=== PATIENT | female | born 1955 | race Hispanic/Latino ===

== ENCOUNTER → 2018-11-25 15:00 | Outpatient (CLI) | payer OTHER, SELFPAY ==
[2018-11-25 15:24] LABS: Add Manual Diff / Slide Review NO; Basophils Absolute Auto 100 /uL (0-100); Basophils Percent Auto 1.1 % (0-2); Eosinophils Absolute Auto 100 /uL (0-450); Eosinophils Percent Auto 1.8 % (2-4); Hematocrit 43.5 % (36-46); Hemoglobin 14.4 g/dL (12.0-16.0); Lymphocytes Absolute Auto 3200 /uL (1100-4500); Lymphocytes Percent Auto 45.1 % (25-40); Mean Corpuscular HGB Conc 33.1 % (30-36); Mean Corpuscular Hemoglobin 27.9 PG (26-34); Mean Corpuscular Volume 84.5 fL (80-100); Monocytes Absolute Auto 400 /uL (0-900); Monocytes Percent Auto 5.8 % (3-14); Neutrophils Absolute Auto 3200 /uL (1500-7000); Neutrophils Percent Auto 46.2 % (50-75); Platelet Count 289 X10^3/uL (150-400); Red Blood Cell Count 5.15 X10^6/uL (4.0-5.2); Red Cell Distribution Width 13.5 % (11.6-14.8)
[2018-11-25 15:31] LABS: Hemoglobin A1C% w Est Avg Glu 7.9 % (4.0-6.0)
[2018-11-25 15:42] LABS: B Type Natriuretic Peptide < 100 (<100)
[2018-11-25 16:34] LABS: HEMOLYSIS < 15 (0-50)
[2018-11-25 16:41] LABS: Alanine Aminotransferase 40 IU/L (9-52); Albumin 4.3 g/dL (3.5-5.0); Albumin Globulin Ratio 1.4 (1.0-2.8); Alkaline Phosphatase 122 U/L (38-126); Aspartate Aminotransferase 22 IU/L (14-36); Bilirubin Total 0.3 mg/dL (0.2-1.3); Blood Urea Nitrogen 15 mg/dL (7-17); Calcium 9.6 mg/dL (8.4-10.2); Carbon Dioxide 24 mmol/L (22-32); Chloride 103 mmol/L (98-107); Estimated Glomerular Filt Rate > 60.0 mL/min (>60); Glucose 145 mg/dL (80-110); Potassium 4.1 mmol/L (3.4-5.1); Sodium 138 mmol/L (137-145); Total Protein 7.3 g/dL (6.3-8.2)
[2018-11-25 16:51] LABS: Microalbumi Creatinin Ratio Ur 23.9 ug/mg CR (<30); Microalbumin Urine Random < 0.6 mg/dL (0-1.6)
[2018-11-25 16:56] LABS: Vitamin D 25 Hydroxy (D3) 17.2 ng/mL (30.0-100.0)
[2018-11-25 17:10] LABS: TSH w/ Reflex to FT4 2.94 uIU/mL (0.47-4.68)
[2018-11-25 17:16] LABS: Ferritin 80.6 ng/mL (11.1-264)
[2018-11-25 17:33] LABS: Rheumatoid Factor < 8.6 IU/mL (<12.0)
[2018-11-25 20:17] LABS: Vitamin B12 600 pg/mL (239-931)
[2018-11-27 20:17] LABS: ANA Pattern Speckled; ANA Screen, IFA Positive (Negative)
== END ==
PROVIDERS: PCP Student in an Organized Health Care Education/Training Program; Visit Provider Student in an Organized Health Care Education/Training Program
DX: E11.9 Type 2 diabetes mellitus without complications (principal); R53.83 Other fatigue; E55.9 Vitamin D deficiency, unspecified; R01.1 Cardiac murmur, unspecified
CPT/HCPCS: 36415; 80053; 82043; 82306; 82570; 82607; 82728; 83036; 83880; 84443; 85025; 86038; 86430

== ENCOUNTER → 2018-12-04 13:32 | Outpatient (CLI) | payer OTHER, SELFPAY ==
[2018-12-04 15:16] LABS: Erythrocyte Sedimentation Rate 18 MM/HR (0-20)
[2018-12-06 09:49] LABS: DNA (DS) Antibody 1 IU/mL (< 5)
[2018-12-06 12:04] LABS: CCP Antibody (IgG) < 16 Units (< 20)
[2018-12-06 13:57] LABS: Complement C3 183 mg/dL (83-193)
[2018-12-11 08:33] LABS: B2-Glycoprotein I IgA AB < 9 SAU (< OR = 20); B2-Glycoprotein I IgG AB < 9 SGU (< OR = 20); B2-Glycoprotein I IgM AB < 9 SMU (< OR = 20); Cardiolipin Ab IgA < 11 APL; Cardiolipin Ab IgG < 14 GPL; Cardiolipin Ab IgM < 12 MPL; Phos. Serine AB IgM < 25 U/mL
== END ==
PROVIDERS: PCP Student in an Organized Health Care Education/Training Program; Visit Provider Student in an Organized Health Care Education/Training Program
DX: R53.83 Other fatigue (principal); R76.8 Other specified abnormal immunological findings in serum
CPT/HCPCS: 85613; 85651; 86146; 86147; 86148; 86160; 86200; 86225; 86235

== ENCOUNTER → 2018-12-22 14:32 | Outpatient (CLI) | payer OTHER, SELFPAY ==
--- NOTE | 2018-12-22 14:34 | DI.MG.S_ITS ---
BILATERAL DIGITAL SCREENING MAMMOGRAM 3D/2D WITH CAD: 12/22/2018 CLINICAL: Routine screening. Family history of breast cancer. Comparison is made to exams dated: 07/12/2010 mammogram, 12/30/2008 mammogram, and 09/06/2004 mammogram - [facility]. There are scattered fibroglandular elements in both breasts. Current study was also evaluated with a Computer Aided Detection (CAD) system. No significant masses, calcifications, or other findings are seen in either breast. There has been no significant interval change. IMPRESSION: NEGATIVE There is no mammographic evidence of malignancy. A 1 year screening mammogram is recommended. This exam was interpreted at Station ID: [id number]. NOTE: For mammograms, a report in lay terms will be sent to the patient. Approximately 15% of breast malignancies will not be visualized mammographically. In the management of a palpable breast mass, a negative mammogram must not discourage biopsy of a clinically suspicious lesion. Electronically Signed By: Jese banks/mandy:12/22/2018 22:29:52 letter sent: Normal Exam ACR BI-RADS Category 1: Negative 3341F
== END ==
PROVIDERS: PCP Student in an Organized Health Care Education/Training Program; Visit Provider Student in an Organized Health Care Education/Training Program
DX: Z12.31 Encounter for screening mammogram for malignant neoplasm of breast (principal); Z80.3 Family history of malignant neoplasm of breast
CPT/HCPCS: 77063; 77067

== ENCOUNTER → 2020-07-06 16:18 | Outpatient (CLI) | payer OTHER, SELFPAY ==
[2020-07-06 17:14] LABS: Hemoglobin A1C% w Est Avg Glu 9.7 % (4.0-6.0)
== END ==
PROVIDERS: PCP Student in an Organized Health Care Education/Training Program; Referring Provider Student in an Organized Health Care Education/Training Program; Visit Provider Student in an Organized Health Care Education/Training Program
DX: E11.9 Type 2 diabetes mellitus without complications (principal)
CPT/HCPCS: 36415; 83036

== ENCOUNTER → 2020-11-10 11:11 | Outpatient (CLI) | payer OTHER, SELFPAY ==
[2020-11-10 12:05] LABS: Hemoglobin A1C% w Est Avg Glu 8.9 % (4.0-6.0)
[2020-11-10 12:10] LABS: Alanine Aminotransferase 27 IU/L (<35); Albumin 4.1 g/dL (3.5-5.0); Albumin Globulin Ratio 1.2 (1.0-2.8); Alkaline Phosphatase 121 U/L (38-126); Aspartate Aminotransferase 26 IU/L (14-36); BUN Creatinine Ratio 27.3 (6-22); Bilirubin Total 0.5 mg/dL (0.2-1.3); Blood Urea Nitrogen 15 mg/dL (7-17); Calcium 9.4 mg/dL (8.4-10.2); Carbon Dioxide 24 mmol/L (22-32); Chloride 104 mmol/L (98-107); Cholesterol 234 mg/dL (140-199); Estimated Glomerular Filt Rate > 60.0 mL/min (>60); Globulin 3.4 g/dL (1.7-4.1); Glucose 202 mg/dL (80-110); HDL Cholesterol 37 mg/dL (40-60); HEMOLYSIS < 15 (0-50); LDL Cholesterol Calculated 151 mg/dL (<100); Potassium 4.4 mmol/L (3.4-5.1); Sodium 136 mmol/L (137-145); Total Protein 7.5 g/dL (6.3-8.2); Triglycerides 231 mg/dL (35-150)
[2020-11-10 12:41] LABS: Thyroid Stimulating Hormone 2.68 uIU/mL (0.47-4.68)
[2020-11-10 14:31] LABS: Creatinine Urine Random 113.9 mg/dL
[2020-11-10 14:35] LABS: Microalbumi Creatinin Ratio Ur 13.1 ug/mg CR (<30); Microalbumin Urine Random 1.5 mg/dL (0-1.6)
== END ==
PROVIDERS: PCP Student in an Organized Health Care Education/Training Program
DX: E11.65 Type 2 diabetes mellitus with hyperglycemia (principal)
CPT/HCPCS: 36415; 80053; 80061; 82043; 82570; 83036; 84443

== ENCOUNTER → 2022-02-21 16:04 | Outpatient (CLI) | payer OTHER, SELFPAY ==
[2022-02-21 17:06] LABS: Hemoglobin A1C% w Est Avg Glu 8.6 % (4.0-6.0)
[2022-02-21 17:12] LABS: Alanine Aminotransferase 24 IU/L (<35); Albumin Globulin Ratio 1.2 (1.0-2.8); Alkaline Phosphatase 120 U/L (38-126); Aspartate Aminotransferase 19 IU/L (14-36); BUN Creatinine Ratio 29.6 (6-22); Bilirubin Total 0.4 mg/dL (0.2-1.3); Blood Urea Nitrogen 16 mg/dL (7-17); Carbon Dioxide 25 mmol/L (22-32); Chloride 103 mmol/L (98-107); Cholesterol 237 mg/dL (140-199); Estimated Glomerular Filt Rate > 60 mL/min (>60); Globulin 3.4 g/dL (1.7-4.1); Glucose 170 mg/dL (80-110); HDL Cholesterol 36 mg/dL (40-60); HEMOLYSIS < 15 (0-50); Potassium 3.9 mmol/L (3.4-5.1); Sodium 136 mmol/L (137-145); Total Protein 7.4 g/dL (6.3-8.2); Triglycerides 417 mg/dL (35-150)
[2022-02-21 17:35] LABS: Creatinine Urine Random 9.7 mg/dL
[2022-02-21 17:37] LABS: Microalbumi Creatinin Ratio Ur 92.7 ug/mg CR (<30); Microalbumin Urine Random 0.9 mg/dL (0-1.6)
[2022-02-21 17:41] LABS: Thyroid Stimulating Hormone 2.49 uIU/mL (0.47-4.68)
== END ==
PROVIDERS: PCP Student in an Organized Health Care Education/Training Program; Referring Provider Internal Medicine; Visit Provider Internal Medicine
DX: E11.9 Type 2 diabetes mellitus without complications (principal)
CPT/HCPCS: 36415; 80053; 80061; 82043; 82570; 83036; 84443

== ENCOUNTER → 2022-05-10 15:31 | Outpatient (CLI) | payer OTHER, SELFPAY ==
[2022-05-10 16:37] LABS: Add Manual Diff / Slide Review NO; Basophils Absolute Auto 100 /uL (0-100); Basophils Percent Auto 1.4 % (0-2); Eosinophils Absolute Auto 200 /uL (0-450); Hemoglobin 14.7 g/dL (12.0-16.0); Lymphocytes Absolute Auto 2800 /uL (1100-4500); Lymphocytes Percent Auto 43.9 % (25-40); Mean Corpuscular HGB Conc 33.3 % (30-36); Mean Corpuscular Hemoglobin 28.6 PG (26-34); Mean Corpuscular Volume 85.8 fL (80-100); Monocytes Absolute Auto 400 /uL (0-900); Monocytes Percent Auto 6.4 % (3-14); Neutrophils Absolute Auto 2900 /uL (1500-7000); Neutrophils Percent Auto 45.3 % (50-75); Platelet Count 251 X10^3/uL (150-400); Red Blood Cell Count 5.13 X10^6/uL (4.0-5.2); Red Cell Distribution Width 13.2 % (11.6-14.8); White Blood Cell Count 6.4 X10^3/uL (4.5-11.0)
[2022-05-10 16:53] LABS: Alanine Aminotransferase 32 IU/L (<35); Albumin 4.1 g/dL (3.5-5.0); Albumin Globulin Ratio 1.3 (1.0-2.8); Alkaline Phosphatase 96 U/L (38-126); Aspartate Aminotransferase 21 IU/L (14-36); BUN Creatinine Ratio 25.5 (6-22); Bilirubin Total 0.5 mg/dL (0.2-1.3); Blood Urea Nitrogen 14 mg/dL (7-17); Calcium 9.2 mg/dL (8.4-10.2); Carbon Dioxide 21 mmol/L (22-32); Chloride 105 mmol/L (98-107); Estimated Glomerular Filt Rate > 60 mL/min (>60); Globulin 3.1 g/dL (1.7-4.1); Glucose 93 mg/dL (80-110); HEMOLYSIS < 15 (0-50); Sodium 137 mmol/L (137-145); Total Protein 7.2 g/dL (6.3-8.2); Uric Acid 3.6 mg/dL (2.5-6.2)
[2022-05-10 16:58] LABS: High Sensitivity CRP - Cardiac 4.6 mg/L (1.0-3.0)
[2022-05-10 17:00] LABS: Rheumatoid Factor < 8.6 IU/mL (<12.0)
[2022-05-10 19:20] LABS: Erythrocyte Sedimentation Rate 9 MM/HR (0-20)
[2022-05-11 17:19] LABS: SS A Ro Sjogrens Antibody < 0.2 AI (0.0-0.9); SS B La Sjogrens Antibody < 0.2 AI (0.0-0.9)
[2022-05-12 11:57] LABS: Angiotensin Converting Enzyme 29 U/L (14-82)
[2022-05-12 13:18] LABS: ANA Screen, IFA Negative (.)
[2022-05-17 14:05] LABS: MuSK Antibodies <1.0 U/mL (.)
== END ==
PROVIDERS: PCP Student in an Organized Health Care Education/Training Program; Referring Provider Ophthalmology; Visit Provider Ophthalmology
DX: H02.402 Unspecified ptosis of left eyelid (principal); H53.8 Other visual disturbances
CPT/HCPCS: 36415; 80053; 82164; 83519; 84443; 84550; 85025; 85651; 86038; 86140; 86235; 86430

== ENCOUNTER 2023-07-12 12:32 | Day surgery (SDC) | payer MEDICARE, OTHER, SELFPAY ==
--- NOTE | 2023-07-12 | PATH_ITS ---
[facility] Accession Number: [id number] No. of containers..01 Tissue . 01 Material submitted: . colon - TRANSVERSE COLON . 01 Diagnosis: Transverse Colon Polyp: Inflammatory polyp with erosion. Negative for dysplasia or malignancy. Additional step sections examined. MRV 07/22/2023 1358 Local . 01 Electronically signed: . Jax Ross MD, PhD, Pathologist NPI- [id number] . 01 Gross description: . TRANSVERSE COLON: Received in formalin is 2 fragment(s) of cooper, soft tissue measuring 0.4 x 0.3 x 0.2 cm to 0.3 x 0.2 x 0.1 cm submitted entirely in 1 cassette(s) /AAY 07/17/2023 0106 Local . 01 Pathologist provided ICD-10: Z12.11, K51.40 . 01 CPT . 016136 Specimen Comment: A courtesy copy of this report has been sent to [phone] Performed at: 01 [facility] [address] [place] [address], [place], [place] [id number] MD Jese Chau MD Phone: [phone]
[2023-07-12 13:05] VITALS: BP 118/62; PULSE 91; RESP 16; TEMP 36.9; O2SAT 96; BMI 28.8
[2023-07-12] MEDS: LACTATED RINGERS 1,000 ML 42 ML IV (13:14)
--- NOTE | 2023-07-12 13:33 | PM.HP.1 ---
History of Present Illness History of Present Illness Date Patient Seen: 07/12/23 Time Patient Seen: 13:33 Chief complaint: Screening Colonoscopy Narrative: 67-year-old woman here for screening colonoscopy. Personal history of colonic polyps last colonoscopy perhaps 2018 at [facility]. Recently she reports a few episodes of painless bright red blood per rectum. No abdominal pain unintentional weight loss. No family history of intestinal malignancy. [facility] Medical History Colon polyps Hiatal hernia (2013) Diabetes mellitus (2013) Surgical History History of colonoscopy with polypectomy History of laparoscopy (~1983) Family History Father Brain tumor Mother Dermatomyositis Sister SLE (systemic lupus erythematosus) MCTD (mixed connective tissue disease) Sena's granulomatosis Brother Colon polyps Family/Other Breast cancer Other Type 1 diabetes mellitus Type 2 diabetes mellitus Social History marital status: household members: spouse Smoking Status: Never smoker Meds Home Medications and Allergies Home Medications Medication Instructions Recorded Confirmed Type blood-glucose meter (FreeStyle #1 ea 06/10/18 06/14/23 Rx Indian Lite kit) blood sugar diagnostic (Blood #250 ea 07/04/20 06/14/23 Rx Glucose Test strips) blood-glucose meter #1 ea 07/04/20 06/14/23 Rx lancets 31 gauge #250 ea 07/04/20 06/14/23 Rx empagliflozin 25 mg tablet 25 mg PO DAILY #30 tabs 06/14/23 07/12/23 Rx (Jardiance) metformin 1,000 mg tablet,extended 1,000 mg PO BID #60 tabs 06/14/23 07/12/23 Rx release 24hr rosuvastatin 5 mg tablet 5 mg PO DAILY 06/14/23 07/12/23 History Allergies Allergy/AdvReac Type Severity Reaction Status Date / Time No Known Drug Allergies Allergy Verified 07/12/23 12:57 Exam Vital Signs (past 8 hours): - 07/12/23 13:05 Temperature 98.4 F Pulse Rate 91 H Respiratory Rate 16 Blood Pressure 118/62 Pulse Oximetry 96 Oxygen Delivery Method Room Air Oxygen Delivery Method Room Air Narrative Exam Narrative: General adult woman alert oriented no acute distress Chest nonlabored respiration Extremities warm well perfused Assessment & Plan Assessment & Plan narrative: The patient requires colorectal screening and colonoscopy is recommended. Technical details were discussed. Risks, benefits, alternatives explained. Risks including but not limited to myocardial infarction, aspiration, bleeding, pain, missed lesion, incomplete examination, need for further radiographic studies, colonic perforation, and need for major abdominal surgery were discussed. All questions were answered to their satisfaction, and they are in agreement with this plan.
[2023-07-12 14:10] VITALS: BP 89/56; PULSE 81; RESP 16; TEMP 36.6; O2SAT 96
[2023-07-12 14:15] VITALS: BP 106/75; PULSE 80; RESP 19; O2SAT 97
[2023-07-12 14:20] VITALS: BP 110/76; PULSE 76; RESP 16; O2SAT 99
--- NOTE | 2023-07-12 14:27 | P.OP.COLON_ITS ---
Operative Date/Time/Diagnoses Date of procedure: 07/12/23 Time of procedure: 14:27 Pre-op diagnosis: Colorectal screening Post-op diagnosis: other (Colonic polyp x1) Procedure & Clinicians Study performed: Colonoscopy and polypectomy Same procedure as scheduled: Yes Indications: Colorectal screening Surgeon: Get Caballero Procedure Notes Procedure in detail: The history and physical was performed/updated and the patient is ASA class is 2. The procedure was discussed in detail with the patient. Potential risks complications including infection, bleeding, missed diagnosis, perforation, need for surgery, and were explained. Their questions were answered and informed consent was obtained. Patient was brought to the procedure room and placed standard monitoring equipment. The patient's vital signs were monitored continuously throughout the entire procedure. Prior to starting time-out was performed. The patient was placed in the left lateral recumbent position. Procedural sedation was administered by anesthesia. Examination began with a thorough inspection of the perianal area there was no evidence of fissures, fistulae, external hemorrhoids or cutaneous malignancy. The colonoscopy scope was then placed into the anal canal and was advanced to the cecum, which was identified by the ileocecal valve, the appendiceal orifice and the confluence of the taenia. The scope was then slowly withdrawn examining colon thoroughly in all directions, irrigating it of any residual stool. The scope was retroflexed within the rectum The patient tolerated the procedure well. They will be discharged once criteria are met. The prep was of good/excellent quality. The withdrawl time was 7 minutes. FINDINGS * Transverse colon-5 mm polyp removed with cold snare * Internal hemorrhoids Specimen(s): other (Transverse colon polyp) Impression: Colonic polyp x1 Post-procedure Plan for aftercare: Follow-up is dependent on pathology findings Disposition: same day surgery
[2023-07-12 14:35] VITALS: BP 118/80; PULSE 77; RESP 17; TEMP 37.1; O2SAT 99
== END 2023-07-12 14:35 | disposition home or self-care (01) ==
PROVIDERS: PCP Family Medicine; Referring Provider Surgery; Visit Provider Surgery
PROC: 0DJD8ZZ Inspection of Lower Intestinal Tract, Via Natural or Artificial Opening Endoscopic (ICD-10-PCS; CPT 45378; principal; 2023-07-12 13:30)
DX: Z12.11 Encounter for screening for malignant neoplasm of colon (principal); K64.8 Other hemorrhoids; K51.40 Inflammatory polyps of colon without complications
CPT/HCPCS: 45385; J2704

== ENCOUNTER → 2023-07-17 12:13 | Outpatient (CLI) | payer MEDICARE, OTHER, SELFPAY ==
--- NOTE | 2023-07-17 12:15 | DI.US.S_ITS ---
ULTRASOUND OF RIGHT BREAST: 07/17/2023 CLINICAL: Palpable right axilla lump. Comparison is made to exams dated: 07/17/2023 mammogram, 12/22/2018 mammogram - [facility], 07/12/2010 mammogram, 12/30/2008 mammogram - [facility], 10/09/2004 [facility], and 09/06/2004 mammogram - [facility]. Color flow ultrasound of the right breast was performed on the areas of interest. Ayala scale images of the real-time examination were reviewed. There is a normal-appearing lymph node in the right axillary tail. This likely correlates as palpated. IMPRESSION: BENIGN There is no sonographic evidence of malignancy. The normal lymph node is benign. Return to annual mammogram screening schedule is recommended. This exam was interpreted at Station ID: [id number]. Electronically Signed By: Ashley atkins/:07/17/2023 13:17:01 letter sent: Normal Exam Ultrasound BI-RADS: 2 Benign
--- NOTE | 2023-07-17 12:19 | DI.MG.S_ITS ---
BILATERAL DIGITAL DIAGNOSTIC MAMMOGRAM 3D/2D: 07/17/2023 CLINICAL: Palpable right axillary lump and pain. Comparison is made to exams dated: 12/22/2018 mammogram - [facility], 07/12/2010 mammogram, and 12/30/2008 mammogram - [facility]. There are scattered areas of fibroglandular density in both breasts (category b / 25%-50% glandular tissue). No significant masses, calcifications, or other findings are seen in either breast. IMPRESSION: INCOMPLETE: NEEDS ADDITIONAL IMAGING EVALUATION There is no mammographic abnormality seen in the right axilla to correspond with the palpable abnormality in the right axilla, however, targeted ultrasound of the right breast is recommended and will be performed immediately following this exam. Based on the Tyrer Cuzick model (a risk assessment model) the patient's lifetime risk is 8.8% and her 10 year risk is 4.3%. According to the ACR, ACS, and NCCN guidelines, an annual breast MRI exam along with mammogram is recommended if the patient's lifetime risk is 20% or greater. This exam was interpreted at Station ID: [id number]. NOTE: For mammograms, a report in lay terms will be sent to the patient. Approximately 15% of breast malignancies will not be visualized mammographically. In the management of a palpable breast mass, a negative mammogram must not discourage biopsy of a clinically suspicious lesion. Electronically Signed By: Ashley Chen M.D. lk/:07/17/2023 12:53:17 ACR BI-RADS Category 0: Incomplete 3340F
[2023-07-17 14:05] LABS: Hemoglobin A1C% w Est Avg Glu 6.9 % (4.0-6.0)
[2023-07-17 14:17] LABS: Erythrocyte Sedimentation Rate 4 MM/HR (0-20)
[2023-07-17 14:25] LABS: Alanine Aminotransferase 33 IU/L (<35); Albumin 4.1 g/dL (3.5-5.0); Albumin Globulin Ratio 1.3 (1.0-2.8); Alkaline Phosphatase 84 U/L (38-126); BUN Creatinine Ratio 32.7 (6-22); Bilirubin Total 0.6 mg/dL (0.2-1.3); Blood Urea Nitrogen 18 mg/dL (7-17); C-Reactive Protein Quant 0.7 mg/dL (<1.0); Calcium 9.7 mg/dL (8.4-10.2); Carbon Dioxide 27 mmol/L (22-32); Chloride 102 mmol/L (98-107); Cholesterol 173 mg/dL (140-199); Estimated Glomerular Filt Rate > 60 mL/min (>60); Globulin 3.2 g/dL (1.7-4.1); Glucose 125 mg/dL (80-110); HDL Cholesterol 54 mg/dL (40-60); HEMOLYSIS < 15 (0-50); LDL Cholesterol Calculated 93 mg/dL (<100); Potassium 4.3 mmol/L (3.4-5.1); Sodium 136 mmol/L (137-145); Total Protein 7.3 g/dL (6.3-8.2); Triglycerides 131 mg/dL (35-150)
[2023-07-17 14:26] LABS: Rheumatoid Factor < 8.6 IU/mL (<12.0)
[2023-07-17 14:58] LABS: TSH w/ Reflex to FT4 1.83 uIU/mL (0.47-4.68)
[2023-07-17 16:28] LABS: Creatinine Urine Random 14.4 mg/dL
[2023-07-17 16:42] LABS: Microalbumin Urine Random < 0.6 mg/dL (0-1.6)
[2023-07-19 11:17] LABS: Lupus Reflex Interpretation Comment: (.); PTT-LA 29.5 sec (0.0-43.5)
[2023-07-19 15:54] LABS: Aspartate Aminotransferase 27 IU/L (14-36)
[2023-07-19 17:38] LABS: ANA Screen, IFA Negative (.)
== END ==
PROVIDERS: PCP Family Medicine; Referring Provider Family Medicine; Visit Provider Family Medicine
DX: N63.31 Unspecified lump in axillary tail of the right breast; R92.8 Other abnormal and inconclusive findings on diagnostic imaging of breast; E11.69 Type 2 diabetes mellitus with other specified complication; E78.5 Hyperlipidemia, unspecified; R29.898 Other symptoms and signs involving the musculoskeletal system; Z83.2 Family history of diseases of the blood and blood-forming organs and certain disorders involving the immune mechanism
CPT/HCPCS: 36415; 76882; 77066; 80053; 80061; 82043; 82570; 83036; 84443; 85598; 85613; 85651; 86038; 86140; 86430; G0279

== ENCOUNTER → 2023-07-22 14:12 | Outpatient (CLI) | payer MEDICARE, OTHER, SELFPAY ==
--- NOTE | 2023-07-22 14:15 | DI.RAD.S_ITS ---
PROCEDURE: XR LUMBAR SPINE MIN 4V INDICATIONS: lumbar pain TECHNIQUE: 5 views of the lumbar spine were acquired, including bilateral oblique views. COMPARISON: None. FINDINGS: Bones: 5 nonrib-bearing vertebrae are present. There is normal bony alignment. No vertebral body compression fractures. No suspicious bony lesions. Mild multilevel degenerative endplate changes and facet hypertrophy. Soft tissues: Overlying bowel gas pattern is normal. No suspicious soft tissue calcifications. Moderate colonic stool. Oblique images: No pars defects. IMPRESSION: Mild multilevel spondylosis. Lumbar spine MRI could be performed for further evaluation if indicated clinically. Approved by: Kervin Bui M.D. on 07/22/2023 at 16:37
== END ==
LOC: RAD 14:14
PROVIDERS: PCP Family Medicine; Referring Provider Family Medicine; Visit Provider Family Medicine
DX: M47.816 Spondylosis without myelopathy or radiculopathy, lumbar region (principal); M54.9 Dorsalgia, unspecified
CPT/HCPCS: 72110

== ENCOUNTER → 2023-08-03 14:35 | Outpatient (CLI) | payer MEDICARE, OTHER, SELFPAY ==
--- NOTE | 2023-08-03 14:37 | DI.MRI.S_ITS ---
PROCEDURE: MR LUMBAR SPINE WO CON INDICATIONS: weakness of both legs TECHNIQUE: Noncontrast sagittal T1 spin echo and T2 fast echo, sagittal STIR, and T2 fast spin echo through the lumbar spine. In cases with scoliosis, additional coronal T2 fast spin echo may be performed. COMPARISON: [facility], CR, XR LUMBAR SPINE MIN 4V, 07/22/2023, 14:21. FINDINGS: Image quality: Excellent. Alignment and Curvature: There is normal bony alignment. Bone Marrow: Marrow is of normal overall signal. Increased T2 signal is present at L2 most consistent with hemangioma. No acute vertebral body compression fractures. Spinal Cord: Conus medullaris terminates at the L2 level. Visualized cord demonstrates normal signal and size. Paraspinous Soft Tissues: No paravertebral masses. T12-L1: No disc bulge, spinal stenosis or foraminal narrowing. L1-L2: No disc bulge, spinal stenosis or foraminal narrowing. L2-L3: No disc bulge, spinal stenosis or foraminal narrowing. L3-L4: No disc bulge, spinal stenosis or foraminal narrowing. Mild facet and ligamentum flavum hypertrophy. L4-L5: No disc bulge, spinal stenosis or foraminal narrowing. Mild facet and ligamentum flavum hypertrophy. L5-S1: No disc bulge, spinal stenosis or foraminal narrowing. Mild facet and ligamentum flavum hypertrophy. IMPRESSION: Multilevel facet and ligamentum flavum hypertrophy. No gross spinal stenosis or foraminal narrowing. Dictated by: Loreto Horton M.D. on 08/05/2023 at 11:10 Approved by: Loreto Horton M.D. on 08/05/2023 at 11:14
== END ==
LOC: MRI 14:36
PROVIDERS: PCP Family Medicine; Referring Provider Family Medicine; Visit Provider Family Medicine
DX: M47.816 Spondylosis without myelopathy or radiculopathy, lumbar region (principal); M47.817 Spondylosis without myelopathy or radiculopathy, lumbosacral region; R29.898 Other symptoms and signs involving the musculoskeletal system
CPT/HCPCS: 72148

== ENCOUNTER 2023-08-03 15:38 | Emergency (ER) | payer MEDICARE, OTHER, SELFPAY ==
[2023-08-03] VITALS (13 sets, daily range): BP systolic 113–150; BP diastolic 55–77; PULSE 86–100; RESP 14–23; TEMP 36.5; O2SAT 94–97; BMI 28.8
--- NOTE | 2023-08-03 15:46 | DI.RAD.S_ITS ---
PROCEDURE: XR CHEST 1V INDICATIONS: chest pain TECHNIQUE: One view of the chest was acquired. COMPARISON: [facility], , CHEST 2 VIEW, 09/24/2014, 15:47. FINDINGS: Surgical changes and devices: None. Lungs and pleura: Lungs are clear. No pleural effusions or pneumothorax. Mediastinum: Mediastinal contours appear normal. Heart size is normal. Bones and chest wall: No suspicious bony lesions. Overlying soft tissues appear unremarkable. IMPRESSION: No acute cardiopulmonary abnormality is seen. Approved by: Cole Collins M.D. on 08/03/2023 at 16:49
[2023-08-03 16:06] LABS: Add Manual Diff / Slide Review NO; Basophils Absolute Auto 100 /uL (0-100); Basophils Percent Auto 1.1 % (0-2); Eosinophils Absolute Auto 200 /uL (0-450); Eosinophils Percent Auto 2.9 % (2-4); Hematocrit 41.2 % (36-46); Hemoglobin 13.7 g/dL (12.0-16.0); Lymphocytes Absolute Auto 2900 /uL (1100-4500); Lymphocytes Percent Auto 45.2 % (25-40); Mean Corpuscular HGB Conc 33.2 % (30-36); Mean Corpuscular Hemoglobin 28.4 PG (26-34); Mean Corpuscular Volume 85.6 fL (80-100); Monocytes Absolute Auto 400 /uL (0-900); Neutrophils Absolute Auto 2800 /uL (1500-7000); Neutrophils Percent Auto 44.8 % (50-75); Platelet Count 252 X10^3/uL (150-400); Red Blood Cell Count 4.82 X10^6/uL (4.0-5.2); Red Cell Distribution Width 13.6 % (11.6-14.8); White Blood Cell Count 6.3 X10^3/uL (4.5-11.0)
[2023-08-03 16:14] LABS: Prothrombin Time 11.4 SECONDS (9.4-12.5)
[2023-08-03 16:17] LABS: PTT Partial Thromboplastin Tim 31 SECONDS (25.1-36.5)
[2023-08-03 16:21] LABS: Alanine Aminotransferase 21 IU/L (<35); Albumin Globulin Ratio 1.3 (1.0-2.8); Alkaline Phosphatase 90 U/L (38-126); Aspartate Aminotransferase 21 IU/L (14-36); BUN Creatinine Ratio 38.8 (6-22); Bilirubin Total 0.6 mg/dL (0.2-1.3); Blood Urea Nitrogen 19 mg/dL (7-17); Calcium 9.6 mg/dL (8.4-10.2); Carbon Dioxide 27 mmol/L (22-32); Chloride 104 mmol/L (98-107); Creatine Kinase 50 U/L (30-135); Estimated Glomerular Filt Rate > 60 mL/min (>60); Globulin 3.2 g/dL (1.7-4.1); Glucose 152 mg/dL (80-110); HEMOLYSIS < 15 (0-50); Lipase 100 U/L (23-300); Magnesium 2.2 mg/dL (1.6-2.3); Potassium 3.7 mmol/L (3.4-5.1); Sodium 139 mmol/L (137-145); Total Protein 7.2 g/dL (6.3-8.2)
--- NOTE | 2023-08-03 16:24 | ED.DIZZY ---
HPI - Dizziness General Chief Complaint: Dizziness Stated Complaint: dizzy/feels unbalanced Time Seen by Provider: 08/03/23 15:40 Source: patient Mode of arrival: Ambulatory History of Present Illness HPI Narrative: 68-year-old female with history of pkz-aowjsmy-opegejuqh diabetes, hyperlipidemia presents by private vehicle for dizziness/lightheaded sensation for 1 day. Patient states that earlier today when she was outside at her grandchildren soccer games she felt like she was off balance and very lightheaded. Continues to endorse lightheadedness currently. She states that she thinks she may have an ear infection as it almost seems like there is fluid buildup in her ears. Triage note reports left arm pain, patient denies this to myself. Denies headache, vision change, numbness, weakness, other complaints at this time. Related Data Home Medications Medication Instructions Recorded Confirmed rosuvastatin 5 mg tablet 5 mg PO DAILY 06/14/23 07/22/23 Previous Rx's Medication Instructions Recorded blood-glucose meter (FreeStyle #1 ea 06/10/18 Charlotte Lite kit) blood sugar diagnostic (Blood #250 ea 07/04/20 Glucose Test strips) blood-glucose meter #1 ea 07/04/20 lancets 31 gauge #250 ea 07/04/20 empagliflozin 25 mg tablet 25 mg PO DAILY #30 tabs 06/14/23 (Jardiance) metformin 1,000 mg tablet,extended 1,000 mg PO BID #60 tabs 06/14/23 release 24hr Allergies Allergy/AdvReac Type Severity Reaction Status Date / Time No Known Drug Allergies Allergy Verified 08/03/23 15:46 Review of Systems Review of Systems Narrative: Negative except as noted above Patient History Medical History Colon polyps Hiatal hernia (2013) Diabetes mellitus (2013) Surgical History History of colonoscopy with polypectomy History of laparoscopy (~1983) Family History Father Brain tumor Mother Dermatomyositis Sister SLE (systemic lupus erythematosus) MCTD (mixed connective tissue disease) Sena's granulomatosis Brother Colon polyps Family/Other Breast cancer Other Type 1 diabetes mellitus Type 2 diabetes mellitus Social History marital status: household members: spouse Smoking Status: Never smoker Smoking Status: Never smoker alcohol intake frequency: holidays/special occasions only Substance Use Type: does not use Exam Initial Vital Signs Initial Vital Signs: Vital Signs Temperature 97.7 F 08/03/23 15:40 Pulse Rate 92 H 08/03/23 15:40 Respiratory Rate 14 08/03/23 15:40 Blood Pressure 150/77 H 08/03/23 15:40 Pulse Oximetry 97 08/03/23 15:40 Oxygen Delivery Method Room Air 08/03/23 15:40 Const: Awake, alert, no acute distress, nontoxic appearing Eyes: PERRL, EOMI, conjunctiva normal ENT: TM normal bilaterally, dentition normal, mucous membranes moist Cardiac: regular rate, regular rhythm RESP: unlabored, clear bilaterally, no wheezing GI: Atraumatic, soft, nontender, nondistended, no rebound, no guarding MSK: Atraumatic, full range of motion, pulses equal Skin: Warm, Dry, intact, no rashes Neuro: AO x3, CN II-XII grossly intact, moves all extremities, gait normal, no ataxia Psych: affect normal, mood normal, not suicidal, not homicidal Course Orders Ordered: Discontinued Medications Sodium Chloride (Normal Saline 0.9%) 1,000 mls @ 1,000 mls/hr IV BOLUS ONE Stop: 08/03/23 17:24 Last Infusion: 08/03/23 17:28 Dose: Infused Documented By: Admin: 08/03/23 16:40 Dose: 1,000 mls/hr Documented By: URIAH Vital Signs Vital signs: Vital Signs - 8 hr 08/03/23 15:40 08/03/23 15:44 08/03/23 15:44 Temperature 97.7 F Pulse Rate 92 H 100 H Respiratory Rate 14 Blood Pressure 150/77 H 150/77 H Pulse Oximetry 97 96 Oxygen Delivery Method Room Air 08/03/23 15:55 08/03/23 15:55 08/03/23 16:00 Temperature Pulse Rate 92 H Respiratory Rate 23 Blood Pressure 126/62 124/68 Pulse Oximetry 94 Oxygen Delivery Method 08/03/23 16:00 08/03/23 16:30 08/03/23 16:39 Temperature Pulse Rate 90 95 H Respiratory Rate 21 23 Blood Pressure 119/62 Pulse Oximetry 95 96 Oxygen Delivery Method 08/03/23 16:39 08/03/23 16:40 08/03/23 16:40 Temperature Pulse Rate 92 H 92 H Respiratory Rate 16 Blood Pressure 116/58 L Pulse Oximetry 97 97 Oxygen Delivery Method MDM - Dizziness Differential Diagnosis Differential diagnosis: Likely benign paroxysmal positional vertigo, orthostatic hypotension and other (hyponatremia) Lab Data 08/03/23 16:00 08/03/23 16:00 Labs: Lab Results 08/03/23 08/03/23 Range/Units 16:00 16:45 WBC 6.3 (4.5-11.0) X10^3/uL RBC 4.82 (4.0-5.2) X10^6/uL Hgb 13.7 (12.0-16.0) g/dL Hct 41.2 (36-46) % MCV 85.6 (80-100) fL MCH 28.4 (26-34) PG MCHC 33.2 (30-36) % RDW 13.6 (11.6-14.8) % Plt Count 252 (150-400) X10^3/uL Neut % (Auto) 44.8 L (50-75) % Lymph % (Auto) 45.2 H (25-40) % [place] % (Auto) 6.0 (3-14) % Eos % (Auto) 2.9 (2-4) % Baso % (Auto) 1.1 (0-2) % Neut # (Auto) 2800 (4051-3469) /uL Lymph # (Auto) 2900 (4405-7440) /uL [place] # (Auto) 400 (0-900) /uL Eos # (Auto) 200 (0-450) /uL Baso # (Auto) 100 (0-100) /uL PT 11.4 (9.4-12.5) SECONDS INR 1.0 (0.9-1.3) APTT 31 (25.1-36.5) SECONDS Sodium 139 (137-145) mmol/L Potassium 3.7 (3.4-5.1) mmol/L Chloride 104 (98-107) mmol/L Carbon Dioxide 27 (22-32) mmol/L BUN 19 H (7-17) mg/dL Creatinine 0.49 L (0.52-1.04) mg/dL Estimated GFR > 60 (>60) mL/min BUN/Creatinine Ratio 38.8 H (6-22) Glucose 152 H (80-110) mg/dL Calcium 9.6 (8.4-10.2) mg/dL Magnesium 2.2 (1.6-2.3) mg/dL Total Bilirubin 0.6 (0.2-1.3) mg/dL AST 21 (14-36) IU/L ALT 21 (<35) IU/L Alkaline Phosphatase 90 (38-126) U/L Total Creatine Kinase 50 (30-135) U/L Troponin I < 0.012 (0.01-0.034) ng/mL Total Protein 7.2 (6.3-8.2) g/dL Albumin 4.0 (3.5-5.0) g/dL Globulin 3.2 (1.7-4.1) g/dL Albumin/Globulin Ratio 1.3 (1.0-2.8) Lipase 100 (23-300) U/L Urine Color Yellow Urine Appearance Clear Urine pH 7.0 (4.5-8.0) Ur Specific [place] 1.010 (1.000-1.035) Urine Protein Negative (Negative) Urine Glucose (UA) 3+ H (Negative) g/dL Urine Ketones Negative (NEGATIVE) Urine Occult Blood Negative (Negative) Urine Nitrate Negative (Negative) Urine Bilirubin Negative (NEGATIVE) Urine Urobilinogen 1.0 (0.2) E.U./dL Ur Leukocyte Esterase Negative (NEGATIVE) Urine RBC None seen (0-5/HPF) Urine WBC 0-1/hpf (0-5/HPF) Ur Squamous Epith Cells 1-5 /hpf (0-5/HPF) Amorphous Sediment 3+ Urine Bacteria Few (2-10) H (None) Ur Culture Indicated? Cult not indicated Vol Urine Centrifuged 10ml (spun) MDM Narrative Medical decision making narrative: Well-appearing patient with nonspecific dizziness. She states that she feels off balance but gait is steady, there is no ataxia, fine motor is intact. Vital signs are stable. With normal neuro exam and no history of trauma we will defer CT imaging at this time. Laboratory work is reviewed, negative for acute findings, no signs of infection. Chest x-ray shows no acute process. Patient has received a L of IV fluids. States she still feels rather lightheaded, repeat neuro exam is unremarkable, and repeat gait is normal without ataxia or instability. Patient counseled on lab and imaging findings, I recommended close PCP follow up. Return to ED for repeat assessment if no improvement. Discharge Plan Departure Patient Disposition: Home Clinical Impression: Dizziness Instructions: DI for Dizziness-Nonvertigo Prescriptions: No Action (DME) blood-glucose meter [FreeStyle [place] Lite] kit See Dose Instructions .ROUTE .MEDSUPPLY Qty: 1 0RF Dose Instruction: As directed Rx Instructions: As directed (DME) blood-glucose meter Misc See Rx Instructions .ROUTE .MEDSUPPLY Qty: 1 0RF Rx Instructions: As directed (DME) lancets 31 gauge misc See Rx Instructions .ROUTE .MEDSUPPLY Qty: 250 3RF Rx Instructions: Use to test blood sugars 3x a day (DME) Blood Glucose Test Strip See Rx Instructions .ROUTE .MEDSUPPLY Qty: 250 3RF Rx Instructions: Use to test blood sugars 3x a day rosuvastatin 5 mg tablet 5 mg PO DAILY Jardiance 25 mg tablet 25 mg PO DAILY Qty: 30 3RF metformin 1,000 mg tablet extended release 24 hr 1,000 mg PO BID Qty: 60 3RF Referrals: Bonnie Verdugo DO [Primary Care Provider] - Stand Alone Forms: Patient Portal/API
[2023-08-03 16:32] LABS: Troponin I < 0.012 ng/mL (0.01-0.034)
[2023-08-03] MEDS: SODIUM CHLORIDE 0.9% 1,000 ML 1000 ML IV (16:40)
[2023-08-03 16:59] LABS: Urine Volume 10mL (spun)
[2023-08-03 17:10] LABS: Appearance Urine UA CLEAR; Bilirubin Urine UA NEGATIVE (NEGATIVE); Color Urine UA YELLOW; Glucose Urine UA 3+ g/dL (Negative); Ketones Urine UA NEGATIVE (NEGATIVE); Leukocyte Esterase Urine UA NEGATIVE (NEGATIVE); Nitrite Urine UA NEGATIVE (Negative); Occult Blood Urine UA NEGATIVE (Negative); Protein Urine UA NEGATIVE (Negative)
[2023-08-03 18:19] LABS: Amorphous Sediment Urine 3+; Bacteria Urine Few (2-10); Culture Indicated Urine Cult Not Indicated; RBC Urine None Seen (0-5/HPF); Squamous Epithelial Cell Urine 1-5 /HPF (0-5/HPF); WBC Urine 0-1/HPF (0-5/HPF)
== END 2023-08-03 18:19 | disposition home or self-care (01) ==
PROVIDERS: Emergency Provider Emergency Medicine; PCP Family Medicine
DX: R42 Dizziness and giddiness (principal); M47.816 Spondylosis without myelopathy or radiculopathy, lumbar region; M47.817 Spondylosis without myelopathy or radiculopathy, lumbosacral region; R29.898 Other symptoms and signs involving the musculoskeletal system; R03.0 Elevated blood-pressure reading, without diagnosis of hypertension
CPT/HCPCS: 36415; 71045; 72148; 80053; 81001; 82550; 83690; 83735; 84484; 85025; 85610; 85730; 93005; 93010; 99284

== ENCOUNTER → 2024-03-24 17:21 | Outpatient (CLI) | payer MEDICARE, OTHER, SELFPAY ==
--- NOTE | 2024-03-24 17:22 | DI.MRI.S_ITS ---
PROCEDURE: MR HEAD/BRAIN WO CON INDICATIONS: follow-up 2018 MRI concern for developing chiari TECHNIQUE: Noncontrast axial T1 spin echo, axial T2 fast spin echo, sagittal and axial FLAIR, coronal T2 fast spin echo, axial gradient echo, axial diffusion and ADC through the brain. COMPARISON: MR, MR HEAD/BRAIN WO CON, 11/12/2017, 19:31. FINDINGS: Image quality: Excellent. CSF Spaces: Basal cisterns are patent. No extra-axial fluid collections. Ventricles are normal in size and shape. Brain: No intracranial masses or hemorrhage. Ayala/white matter interface is normal. Brainstem appears normal. Diffusion-weighted images demonstrate no acute infarct. No chronic ischemic insults. Normal intravascular flow voids are present. Cerebellar tonsils are low lying, unchanged. Skull and face: Calvarium has normal marrow signal. Orbits appear normal. Sinuses: Sinuses and mastoids are clear. IMPRESSION: Unchanged appearance of low lying cerebellar tonsils. No evidence of developing syrinx. Dictated by: Loreto Horton M.D. on 03/25/2024 at 10:20 Approved by: Loreto Horton M.D. on 03/25/2024 at 10:25
== END ==
LOC: MRI 17:21
PROVIDERS: PCP Family Medicine; Referring Provider Family Medicine; Visit Provider Family Medicine
DX: Q04.8 Other specified congenital malformations of brain (principal); M24.28 Disorder of ligament, vertebrae; R29.898 Other symptoms and signs involving the musculoskeletal system
CPT/HCPCS: 70551

== ENCOUNTER → 2025-02-16 12:09 | Outpatient (CLI) | payer MEDICARE, OTHER, SELFPAY ==
[2025-02-16 12:46] LABS: Add Manual Diff / Slide Review NO; Hematocrit 40.2 % (36-46); Hemoglobin 13.6 g/dL (12.0-16.0); Lymphocytes Absolute Auto 2400 /uL (1100-4500); Mean Corpuscular HGB Conc 33.8 % (30-36); Mean Corpuscular Hemoglobin 29.4 PG (26-34); Mean Corpuscular Volume 87.0 fL (80-100); Platelet Count 263 X10^3/uL (150-400)
[2025-02-16 13:28] LABS: Alanine Aminotransferase 26 IU/L (<35); Albumin 3.9 g/dL (3.5-5.0); Albumin Globulin Ratio 1.4 (1.0-2.8); Alkaline Phosphatase 91 U/L (38-126); Blood Urea Nitrogen 15 mg/dL (7-17); Calcium 9.3 mg/dL (8.4-10.2); Carbon Dioxide 23 mmol/L (22-32); Chloride 108 mmol/L (98-107); Cholesterol 198 mg/dL (140-199); Estimated Glomerular Filt Rate > 60 mL/min (>60); Globulin 2.8 g/dL (1.7-4.1); Glucose 98 mg/dL (70-99); HDL Cholesterol 43 mg/dL (40-60); HEMOLYSIS < 15 (0-50); Potassium 4.3 mmol/L (3.4-5.1); Sodium 137 mmol/L (137-145); Total Protein 6.7 g/dL (6.3-8.2); Triglycerides 114 mg/dL (35-150)
[2025-02-16 13:29] LABS: Hemoglobin A1C% w Est Avg Glu 6.0 % (4.0-6.0)
[2025-02-16 15:53] LABS: Microalbumi Creatinin Ratio Ur 12.0 ug/mg CR (<30)
== END ==
PROVIDERS: PCP Family Medicine; Referring Provider Family Medicine; Visit Provider Family Medicine
DX: E11.69 Type 2 diabetes mellitus with other specified complication (principal); E78.5 Hyperlipidemia, unspecified; R53.83 Other fatigue
CPT/HCPCS: 80053; 80061; 82043; 82570; 83036; 85025